=== PATIENT | female | born 1990 | race Caucasian/White ===

== ENCOUNTER → 2016-11-06 | Outpatient (CLI) | payer OTHER ==
--- NOTE | 2016-11-07 08:50 | CPEEG ---
[f rep st] ELECTROENCEPHALOGRAM A 4-HOUR VIDEO EEG. DATE OF STUDY: 11/06/2016 DATE OF INTERPRETATION: November 06, 2016. INTERPRETATION: This 4-hour video EEG recording is normal. There were no potentially epileptogenic abnormalities present during the recording. During the video EEG monitoring session, the patient did not have any clinical evidence. REPORT: This 4-hour video EEG contains 10-11 Hz alpha activity of the posterior head regions. The b ackground activity was normal and symmetric. There was no abnormal activation at rest, during photic stimulation or hyperventilation. the patient became drowsy and fell into sustained sleep during the recording. There was no abnormal activation during drowsiness, sleep, or during times of arousal. During the video EEG monitoring session, the patient did not have any clinical events. /[id number]/MODL
== END ==
LOC: FCPNEURO 08:49
PROVIDERS: ATTEND Psychiatry & Neurology Neurology
DX: R56.9 Unspecified convulsions (principal)